=== PATIENT | female | born 1990 | race Caucasian/White ===

== ENCOUNTER 2023-04-23 19:41 | Emergency (ER) | payer BC, OTHER, SELFPAY ==
[2023-04-23 19:42] VITALS: BP 124/88
[2023-04-23 19:55] VITALS: BMI 67.4
[2023-04-23 20:12] LABS: % Basophils 0.6 % (0-2); % Eosinophils 2.2 % (0-6); % Immature Granulocytes 0.6 % (0-0.5); % Lymphocytes 24.2 % (20.5-51.1); % Monocytes 6.6 % (1.7-9.3); % Neutrophils 65.8 % (42.2-75.2); Absolute Basophils 0.1 10^3/uL (0-0.2); Absolute Eosinophils 0.3 10^3/uL (0-0.7); Absolute Immature Granulocytes 0.1 10^3/uL (0-0.05); Absolute Lymphocytes 3.2 10^3/uL (1.2-3.4); Absolute Monocytes 0.9 10^3/uL (0.1-0.6); Absolute Neutrophils 8.8 10^3/uL (1.4-6.5); Hematocrit 35.6 % (37.0-47.0); Hemoglobin 11.4 g/dL (12.0-16.0); Mean Corpuscular Hgb 23.8 pg (27.0-31.0); Mean Corpuscular Volume 74.5 fL (81.0-99.0); Mean Platelet Volume 8.9 fL (7.4-10.4); Nucleated Red Blood Cells % 0 %; Platelet Count 466 10^3/uL (130-400); Red Blood Cell Count 4.78 10^6/uL (4.20-5.40); Red Cell Dist. Width 18.7 % (11.5-14.5); White Blood Cell Count 13.4 10^3/uL (4.8-10.8)
[2023-04-23 20:21] LABS: Amphetamines Negative (Negative); Barbiturates Negative (Negative); Benzodiazepines Negative (Negative); Buprenorphine Negative (Negative); Cocaine Negative (Negative); Marijuana Negative (Negative); Methadone Negative (Negative); Methamphetamines Negative (Negative); Opiates Negative (Negative); Phencyclidine Negative (Negative); Tricyclic Antidepressants Negative (Negative)
[2023-04-23 20:30] LABS: Blood Urea Nitrogen 13 mg/dl (7-17); Calcium 9.4 mg/dl (8.4-10.2); Carbon Dioxide 27 mmol/L (22-30); Estimated Creatinine Clearance > 125 ml/min; Glucose 103 mg/dl (70-99); eGFR > 60.00
[2023-04-23 20:31] LABS: Alcohol None Detected
[2023-04-23 20:40] LABS: Chloride 100 mmol/L (98-107); Potassium 4.1 mmol/L (3.5-5.1); Sodium 136 mmol/L (135-145)
--- NOTE | 2023-04-23 21:02 | ED.GENMED ---
History of Present Illness
General
Chief Complaint: Crisis Evaluation
Source: patient
Time Seen by Provider: 04/23/23 20:55
Travel History
Have you had any contact with someone who has COVID-19?: No
Do you have any symptoms of coronavirus? Fever > 100 degrees, chills, cough, shortness of breath, sore throat, loss of taste or smell, muscle aches, or headache?: No
History of Present Illness
History of Present Illness:
Patient brought to the emergency room for crisis evaluation for evaluation of injuries to her right forearm. Patient states she is cutting her cell because she needs to have enough cuts to reach her magic number. The magic number is 366. Patient
is not suicidal but has a compulsion to cut for this reason. Patient denies doing anything else to hurt herself. She does not have access to her medications as she resides at a facility that handles her medications.
Past History
Past History
ED Past Medical History: Psychiatric (Obsessive compulsive disorder, borderline personality disorder, bipolar disorder, self-mutilation) and Other (Self-injurious behavior)
ED Past Surgical History: Cholecystectomy (February 2014)
Social History
Tobacco: Non-smoker
Alcohol: None
Personal: Single
Living: other ([facility])
Family History
Family History: Other (Noncontributory)
Phy Exam
Physical Exam
Physical Exam:
General: Awake, Alert, Oriented X3. Childlike demeanor, high BMI
Vitals: unremarkable
Head: Atraumatic
Eyes: Pupils equal, EOMI
Throat: Airway intact, no exudates
Neck: Trachea midline
Lungs: Clear and equal b/l
Heart: Regular rate, no murmurs
Neuro: Nonfocal
Skin: Warm, dry, no rash
Extremities: pulses equal b/l, no edema. Right forearm has multiple superficial abrasions and superficial lacerations and varying states of healing. None require suturing.
Course
Orders/Labs/Results
Orders:
Orders
04/23/23 20:05
Alcohol Urgent
Basic Metabolic Panel Urgent
Complete Blood Count/With Diff Urgent
Urine Drug Abuse Screen Urgent
Date Specimen was Collected: 04/23/23
Time Specimen was Collected: 19:57
Abnormal Lab Results
04/23/23
20:05
WBC 13.4 H 10^3/uL
(4.8-10.8)
Hgb 11.4 L g/dL
(12.0-16.0)
Hct 35.6 L %
(37.0-47.0)
MCV 74.5 L fL
(81.0-99.0)
MCH 23.8 L pg
(27.0-31.0)
MCHC 32.0 L g/dL
(33.0-37.0)
RDW 18.7 H %
(11.5-14.5)
Plt Count 466 H 10^3/uL
(130-400)
Abs Immat Gran (auto) 0.1 H 10^3/uL
(0-0.05)
Absolute Neuts (auto) 8.8 H 10^3/uL
(1.4-6.5)
Absolute Monos (auto) 0.9 H 10^3/uL
(0.1-0.6)
Immature Gran % 0.6 H %
(0-0.5)
Glucose 103 H mg/dl
(70-99)
04/23/23 20:05
04/23/23 20:05
Vital Signs
Initial and Last Documented VS:
Initial Vital Signs
Temp Pulse Resp BP Pulse Ox
99.0 F 106 17 124/88 95
04/23/23 19:42 04/23/23 19:42 04/23/23 19:42 04/23/23 19:42 04/23/23 19:42
Last Documented Vital Signs
Temp Pulse Resp BP Pulse Ox
99.0 F 106 17 124/88 95
04/23/23 19:42 04/23/23 19:42 04/23/23 19:42 04/23/23 19:42 04/23/23 19:42
MDM/Problems Addressed
Differential Diagnosis Includes:
Self injures behavior
MDM/Problems Addressed:
Patient presents with multiple superficial abrasions and lacerations. Suturing is not indicated given the vast majority are not very deep and she has been doing this for over a week so it is unclear how low many of them are. Patient would likely
pull the sutures out anyway. We will apply some Neosporin and dressed the wounds. Patient cleared for psychiatric treatment.
*Critical Care Note
Total Time (30-74mins, 75-104mins- exclusive of procedures): Not Applicable
ED Attending Note
-
Portions of this chart may have been created with voice recognition software.� Occasional wrong word or��sound alike� substitutions may have occurred due to the inherent limitations of voice recognition software.
Discharge Plan
Departure
Patient Disposition: [facility]
Date of Disposition: 04/23/23
Time of Disposition: 21:06
Condition: Fair
Discharge Problem:
Self-inflicted injury, Abrasion of multiple sites of right upper arm
Prescriptions:
No Action
metformin 500 mg tablet
500 mg PO BID
venlafaxine 75 mg capsule,extended release 24hr
75 mg PO DAILY
Rx Instructions:
taken w/ 150mg = 225mg
atorvastatin 10 mg tablet
10 mg PO QPM
clonazepam 1 mg tablet
1 mg PO BID@1600,2200
Patient Comments:
03/13/2023: last filled 03/07/23, 60 tabs for 30 days from [place]
venlafaxine 150 mg capsule,extended release 24hr
150 mg PO DAILY
Rx Instructions:
taken w/ 75mg = 225mg
hydroxyzine HCl 50 mg tablet
50 mg PO BID
amlodipine 10 mg tablet
10 mg PO DAILY
levothyroxine 50 mcg tablet
50 mcg PO DAILY
clonazepam 2 mg tablet
2 mg PO DAILY
Patient Comments:
03/13/2023: last filled 02/26/23, 30 tabs for 30 days
hydrochlorothiazide 12.5 mg capsule
12.5 mg PO DAILY
omeprazole 20 mg capsule,delayed release(DR/EC)
40 mg PO DAILY
montelukast 10 mg tablet
10 mg PO DAILY
gabapentin 100 mg capsule
100 mg PO DAILY
Mucus DM 30-600 mg tablet extended release 12 hr
1 tab PO BID PRN (Reason: congestion)
risperidone 1 mg tablet
1 mg PO DAILY
cholecalciferol (vitamin D3) 50 mcg (2,000 unit) capsule
50 mcg PO DAILY
Austedo 6 mg tablet
6 mg PO BID
risperidone 1 mg tablet
1.5 mg PO HS
budesonide-formoterol [Symbicort] 80-4.5 mcg/actuation Hfa Aerosol Inhaler
2 puff inhalation R BID Qty: 10.2 0RF
Rx Instructions:
1 inhalation bid
azithromycin 250 mg Tablet
250 mg PO DAILY Qty: 2 0RF
Rx Instructions:
take 1 tab on 03/19 and one on 03/20 , then stop
prednisone 10 mg tablet
10 mg PO DIRECTED Qty: 9 0RF
Rx Instructions:
3 tabs on 03/19, the 2 tabs on 03/20 and 03/21, then 1 tab on 03/22 and 03/23, then stop
albuterol sulfate [ProAir HFA] 90 mcg/actuation HFA aerosol inhaler
2 puff inhalation Q6H PRN (Reason: shortness of breath or wheezing) Qty: 6.7 0RF
Interventions
Interventions:
*Risk Screen - Suicide Last Done: 04/23/23 19:48
*General Assessment Last Done: 04/23/23 19:48
*Neglect/Abuse Screening Last Done: 04/23/23 19:48
*ED COVID-19 Vaccine History Last Done: 04/23/23 19:48
*Nursing Disposition Last Done: 04/23/23 21:27
ED-Psychological Assessment Last Done: 04/23/23 19:54
Discharge Date and Time
Discharge Date/Time: 04/23/23 21:28
== END 2023-04-23 21:28 ==
LOC: EMR 19:41
PROVIDERS: Emergency Medicine; EMERGENCY PHYSICIAN Emergency Medicine
DX: S40.811A Abrasion of right upper arm, initial encounter (principal); X78.9XXA Intentional self-harm by unspecified sharp object, initial encounter; Z91.52 Personal history of nonsuicidal self-harm
CPT/HCPCS: 99283; 80048; 80306; 82077; 85025

== ENCOUNTER 2023-11-16 20:31 | Emergency (ER) | payer BC, OTHER, SELFPAY ==
[2023-11-16 20:38] VITALS: BP 140/72
[2023-11-16 20:45] VITALS: BMI 64.2
--- NOTE | 2023-11-16 22:37 | ED.GENMED ---
Addendum entered and electronically signed by Irma Dumont MD 12/03/23 11:23:
(Late entry 11:22 am 12/03/23) Wounds X4 repaired with glue after irrigation. Wounds measured approx 5 cm, 5 cm, 6 cm and 6 cm.
Original Note:
History of Present Illness
General
Chief Complaint: Self Inflicted Injury
Source: patient
Time Seen by Provider: 11/16/23 21:40
History of Present Illness
History of Present Illness:
33 yr old female at [facility], was able to sneak razor into her room, and cut her L forearm area multiple times. Staff noted and broguht pt here. Pt denies si/hi, states she got the 'twisites'/anxious and did this in an impulsive manner. No other
injuries.
Past History
Past History
ED Past Medical History: Psychiatric (Obsessive compulsive disorder, borderline personality disorder, bipolar disorder, self-mutilation) and Other (Self-injurious behavior)
ED Past Surgical History: Cholecystectomy (February 2014)
Social History
Tobacco: Non-smoker
Alcohol: None
Personal: Single
Living: other ([facility])
Family History
Family History: Other (Noncontributory)
Phy Exam
Physical Exam
Physical Exam:
AAo times three, in nad
pupils equal and round
mmm, o/p clear
neck supple
hrt rrr
lung cta
abd soft, nt, nd
extrem no c/c/e
psych cooperative, pleasant, denies si/hi
skin multiple mostly superficial linear abrasions L forearm, numbering up to 15...4 of which exnted just to level of soft tissue, no active bleed
Course
Orders/Labs/Results
Orders:
Orders
11/16/23 22:45
Clonazepam [Klonopin] 2 mg PO NOW STA
Gabapentin [Neurontin] 300 mg PO NOW STA
METFORMIN HCl [Glucophage] 500 mg PO NOW STA
Montelukast Sodium [Singulair] 10 mg PO NOW STA
11/16/23 22:57
Quetiapine Fumarate [Seroquel] 200 mg PO NOW STA
Varenicline [Chantix] 1 mg PO NOW STA
11/16/23 23:38
Quetiapine Fumarate [Seroquel] 300 mg PO NOW STA
Vital Signs
Initial and Last Documented VS:
Initial Vital Signs
Temp Pulse Resp BP Pulse Ox
99.2 F 87 18 140/72 97
11/16/23 20:38 11/16/23 20:38 11/16/23 20:38 11/16/23 20:38 11/16/23 20:38
Last Documented Vital Signs
Temp Pulse Resp BP Pulse Ox
99.2 F 87 18 140/72 97
11/16/23 20:38 11/16/23 20:38 11/16/23 20:38 11/16/23 20:38 11/16/23 20:38
Procedures
Laceration Closure
Arm:
Status of Wound: clean
Description of Wound Edges: sharp
Preparation: cleaned with saline
Revision/Debridement: routine- no revision
Wound exploration: explored to base- no FB
Type of Closure: Dermabond-skin glue
*Critical Care Note
Total Time (30-74mins, 75-104mins- exclusive of procedures): Not Applicable
Update Note
Update Note:
I Mr. Brock patient presents to the Emergency Department with forearm laceration
Number and Complexity of Problems Addressed at the Encounter
� Chronic conditions affecting care:
� Acute Exacerbation and/or Progression of Chronic Illness:
� Differential Diagnosis includes: but not limited to laceration, abrasions, other injury
Amount and/or Complexity of Data to be Reviewed and Analyzed
� I performed an independent evaluation of and my interpretation is:
EKG:
CT:
Xrays:
Laboratory Studies:
Other:
� Review of other/old records reveals:
� Clinical information was obtained by an independent historian: worker who is bedside
� Prescriptions/Medications Considered but not given:
� Further testing considered but not performed:
Risk of Complications and/or Morbidity or Mortality of Patient Management
� Social determinants of health affecting care:
� Discussion with other providers (PCP, Hospitalists, Consultants, etc):
� Escalation of care including admission/observation vs risk of discharge considered: wounds cleaned and repaired by me. Worker from facility d/w recycling operations manager who recommends 302 for pt and will file one, crisis made aware. To me, pt
denies si/hi and is eager to return to facility, states she did this b/c of anxiety not wanting to . Dispo as per crisis, pt medically cleared.
ED Attending Note
-
Portions of this chart may have been created with voice recognition software.� Occasional wrong word or��sound alike� substitutions may have occurred due to the inherent limitations of voice recognition software.
Discharge Plan
Departure
Patient Disposition: [facility]
Date of Disposition: 11/16/23
Time of Disposition: 22:50
Discharge Problem:
Deliberate self-cutting
Instructions: Laceration Repair With Glue (DC), BLOOD PRESSURE
Prescriptions:
No Action
metformin 500 mg tablet
500 mg PO BID
venlafaxine 75 mg capsule,extended release 24hr
75 mg PO DAILY
Rx Instructions:
taken w/ 150mg = 225mg
atorvastatin 10 mg tablet
10 mg PO QPM
clonazepam 1 mg tablet
1 mg PO BID@1600,2200
Patient Comments:
03/13/2023: last filled 03/07/23, 60 tabs for 30 days from [place]
venlafaxine 150 mg capsule,extended release 24hr
150 mg PO DAILY
Rx Instructions:
taken w/ 75mg = 225mg
hydroxyzine HCl 50 mg tablet
50 mg PO BID
amlodipine 10 mg tablet
10 mg PO DAILY
levothyroxine 50 mcg tablet
50 mcg PO DAILY
clonazepam 2 mg tablet
2 mg PO DAILY
Patient Comments:
03/13/2023: last filled 02/26/23, 30 tabs for 30 days
hydrochlorothiazide 12.5 mg capsule
12.5 mg PO DAILY
omeprazole 20 mg capsule,delayed release(DR/EC)
40 mg PO DAILY
montelukast 10 mg tablet
10 mg PO DAILY
gabapentin 100 mg capsule
100 mg PO DAILY
Mucus DM 30-600 mg tablet extended release 12 hr
1 tab PO BID PRN (Reason: congestion)
risperidone 1 mg tablet
1 mg PO DAILY
cholecalciferol (vitamin D3) 50 mcg (2,000 unit) capsule
50 mcg PO DAILY
Austedo 6 mg tablet
6 mg PO BID
risperidone 1 mg tablet
1.5 mg PO HS
budesonide-formoterol [Symbicort] 80-4.5 mcg/actuation Hfa Aerosol Inhaler
2 puff inhalation R BID Qty: 10.2 0RF
Rx Instructions:
1 inhalation bid
azithromycin 250 mg Tablet
250 mg PO DAILY Qty: 2 0RF
Rx Instructions:
take 1 tab on 03/19 and one on 03/20 , then stop
prednisone 10 mg tablet
10 mg PO DIRECTED Qty: 9 0RF
Rx Instructions:
3 tabs on 03/19, the 2 tabs on 03/20 and 03/21, then 1 tab on 03/22 and 03/23, then stop
albuterol sulfate [ProAir HFA] 90 mcg/actuation HFA aerosol inhaler
2 puff inhalation Q6H PRN (Reason: shortness of breath or wheezing) Qty: 6.7 0RF
Referrals:
Alejandra Deal DO [Family Provider] -
Activity Restrictions/Additional Instructions:
YOU HAD YOUR WOUNDS CLEANED, AND SOME WERE REPAIRED WITH GLUE. DO NOT APPLY ANTIBIOTIC OINTMENT OR ANY OIL BASED CREAMS/LOTIONS. IF YOU DEVELOP REDNESS/WARMTH/SWELLING/DRAINAGE/BLEEDING/FEVER OR OTHER WORISOME SIGNS, GO TO THE ER IMMEDIATELY!
Interventions
Interventions:
*Risk Screen - Suicide Last Done: 11/16/23 20:38
*General Assessment Last Done: 11/16/23 20:38
*Neglect/Abuse Screening Last Done: 11/16/23 20:38
ED- Fall Risk Assessment Last Done: 11/16/23 23:00
*ED COVID-19 Vaccine History Last Done: 11/17/23 03:23
*Nursing Disposition Last Done: 11/17/23 03:23
ED-Suicide Risk Assessment Last Done: 11/16/23 20:50
ED-Skin Assessment Last Done: 11/16/23 20:50
Discharge Date and Time
Discharge Date/Time: 11/17/23 03:25
Print Language: PERSIAN
--- NOTE | 2023-11-16 23:05 | EDRN ---
Report received, introduced myself to patient, she is aware we are waiting for her meds to come up from pharmacy, asking for socks as well, will get her that also.
[2023-11-16] MEDS: GLUCOPHAGE 500 MG PO (23:20)
[2023-11-16] MEDS: KLONOPIN 2 MG PO (23:20)
[2023-11-16] MEDS: NEURONTIN 300 MG PO (23:21)
[2023-11-16] MEDS: SINGULAIR 10 MG PO (23:21)
[2023-11-16] MEDS: CHANTIX 1 MG PO (23:21)
[2023-11-16] MEDS: SEROQUEL 200 MG PO (23:21)
[2023-11-16] MEDS: SEROQUEL 300 MG PO (23:56)
--- NOTE | 2023-11-17 02:00 | EDRN ---
Patient sleeping and resting comfortably at this time.
== END 2023-11-17 03:25 ==
LOC: EMR 20:31
PROVIDERS: EMERGENCY PHYSICIAN Emergency Medicine; FAMILY PHYSICIAN Family Medicine
DX: S51.812A Laceration without foreign body of left forearm, initial encounter (principal); X99.8XXA Assault by other sharp object, initial encounter
CPT/HCPCS: 99284; 12006

== ENCOUNTER 2024-01-15 21:13 | Emergency (ER) | payer BC, OTHER, SELFPAY ==
[2024-01-15 21:13] VITALS: BP 124/63
[2024-01-15 21:15] VITALS: BP 134/85
[2024-01-15 22:55] LABS: % Basophils 0.7 % (0-2); % Eosinophils 2.7 % (0-6); % Immature Granulocytes 0.5 % (0-0.5); % Lymphocytes 22.6 % (20.5-51.1); % Neutrophils 67.5 % (42.2-75.2); Absolute Basophils 0.1 10^3/uL (0-0.2); Absolute Eosinophils 0.4 10^3/uL (0-0.7); Absolute Immature Granulocytes 0.1 10^3/uL (0-0.05); Absolute Monocytes 0.8 10^3/uL (0.1-0.6); Absolute Neutrophils 8.8 10^3/uL (1.4-6.5); Hematocrit 37.1 % (37.0-47.0); Mean Corp Hgb Conc. 32.3 g/dL (33.0-37.0); Mean Corpuscular Volume 83.4 fL (81.0-99.0); Nucleated Red Blood Cells % 0 %; Platelet Count 411 10^3/uL (130-400); Red Blood Cell Count 4.45 10^6/uL (4.20-5.40); Red Cell Dist. Width 16.2 % (11.5-14.5); White Blood Cell Count 13.1 10^3/uL (4.8-10.8)
[2024-01-15 23:29] LABS: Blood Urea Nitrogen 14 mg/dl (7-17); Calcium 9.3 mg/dl (8.4-10.2); Carbon Dioxide 25 mmol/L (22-30); Chloride 100 mmol/L (98-107); Glucose 97 mg/dl (70-99); Sodium 138 mmol/L (135-145); eGFR > 60.00
[2024-01-16 00:30] LABS: Amphetamines Negative (Negative); Barbiturates Negative (Negative); Benzodiazepines Negative (Negative); Buprenorphine Negative (Negative); Cocaine Negative (Negative); Marijuana Negative (Negative); Methadone Negative (Negative); Methamphetamines Negative (Negative); Opiates Negative (Negative); Phencyclidine Negative (Negative); Tricyclic Antidepressants Positive (Negative)
--- NOTE | 2024-01-16 02:34 | ED.GENMED ---
History of Present Illness
General
Chief Complaint: Suicidal Ideation
Source: patient and records
Exam Limitations: none
Time Seen by Provider: 01/15/24 21:19
Nursing documentation reviewed up to this point in time: agreed with
History of Present Illness
History of Present Illness:
Patient is a 33-year-old female with a history of self-inflicted lacerations to her forearms who presents again tonight. Patient states she will keep going until she Committed suicide. Patient is suicidal but without a plan. Patient denies any
numbness or paresthesias.
Past History
Past History
ED Past Medical History: Psychiatric (Obsessive compulsive disorder, borderline personality disorder, bipolar disorder, self-mutilation) and Other (Self-injurious behavior)
ED Past Surgical History: Cholecystectomy (February 2014)
Social History
Tobacco: Non-smoker
Alcohol: None
Personal: Single
Living: other ([facility])
Family History
Family History: Other (Noncontributory)
Review of Systems
Review of Systems
All Other Systems: Not applicable
Phy Exam
Physical Exam
Physical Exam:
Physical Exam
General: No apparent distress, alert and appropriate, morbidly obese, well hydrated
HENT: Normocephalic, supple with no lymphadenopathy, no thyromegaly
Eyes: Clear sclera, conjuctiva without injection
Lungs: No respiratory distress, no stridor
Neuro: Alert and oriented x 3, CN II - XII intact, no motor focality, no cerebellar dysfunction
Skin: Bilateral forearms with superficial lacerations. Neurovascular and tendons intact
Psychiatric: well kept. interactive and cooperative but with self-harm ideation
Extremities: No edema, cyanosis
Course
Orders/Labs/Results
Orders:
Orders
01/15/24 21:17
1:1 Observation - Suicide/ Violent Behavior As Directed
01/15/24 21:19
Crisis Consult Urgent
Reason for Consult: SI
01/15/24 22:16
Urine Drug Abuse Screen Urgent
Date Specimen was Collected: 01/15/24
Time Specimen was Collected: 22:37
01/15/24 22:31
Basic Metabolic Panel Urgent
01/15/24 22:49
Complete Blood Count/With Diff Urgent
Abnormal Lab Results
01/15/24 01/16/24
22:49 00:08
WBC 13.1 H 10^3/uL
(4.8-10.8)
MCHC 32.3 L g/dL
(33.0-37.0)
RDW 16.2 H %
(11.5-14.5)
Plt Count 411 H 10^3/uL
(130-400)
Abs Immat Gran (auto) 0.1 H 10^3/uL
(0-0.05)
Absolute Neuts (auto) 8.8 H 10^3/uL
(1.4-6.5)
Absolute Monos (auto) 0.8 H 10^3/uL
(0.1-0.6)
Ur Tricyclics Screen Positive H
(Negative)
01/15/24 22:49
01/15/24 22:31
Vital Signs
Initial and Last Documented VS:
Initial Vital Signs
Temp Pulse Resp BP Pulse Ox
98.5 F 102 18 134/85 94
01/15/24 21:15 01/15/24 21:15 01/15/24 21:15 01/15/24 21:15 01/15/24 21:15
Last Documented Vital Signs
Temp Pulse Resp BP Pulse Ox
98.5 F 102 18 134/85 94
01/15/24 21:15 01/15/24 21:15 01/15/24 21:15 01/15/24 21:15 01/15/24 21:15
*Radiology
Radiology exam reviewed: other (na)
*Pulse Oximetry
Patient hypoxic: no
*EKG
Interpreted by ED Provider?: NA
*Stable Helper Interpretation
Rate: Stable Helper- N/A
*Critical Care Note
Total Time (30-74mins, 75-104mins- exclusive of procedures): Not Applicable
Update Note
Update Note:
Patient has been committed. Patient is medically clear for hospitalization
ED Attending Note
-
Portions of this chart may have been created with voice recognition software.� Occasional wrong word or��sound alike� substitutions may have occurred due to the inherent limitations of voice recognition software.
Discharge Plan
Departure
Patient Disposition: Psych Facility
Date of Disposition: 01/16/24
Time of Disposition: 02:40
Patient with high blood pressure during this ER visit?: No
Condition: Fair
Discharge Problem:
Intentional self-harm, Suicidal ideation
Prescriptions:
No Action
metformin 500 mg tablet
500 mg PO BID
venlafaxine 75 mg capsule,extended release 24hr
75 mg PO DAILY
Rx Instructions:
taken w/ 150mg = 225mg
atorvastatin 10 mg tablet
10 mg PO QPM
clonazepam 1 mg tablet
1 mg PO BID@1600,2200
Patient Comments:
03/13/2023: last filled 03/07/23, 60 tabs for 30 days from [place]
venlafaxine 150 mg capsule,extended release 24hr
150 mg PO DAILY
Rx Instructions:
taken w/ 75mg = 225mg
hydroxyzine HCl 50 mg tablet
50 mg PO BID
amlodipine 10 mg tablet
10 mg PO DAILY
levothyroxine 50 mcg tablet
50 mcg PO DAILY
clonazepam 2 mg tablet
2 mg PO DAILY
Patient Comments:
03/13/2023: last filled 02/26/23, 30 tabs for 30 days
hydrochlorothiazide 12.5 mg capsule
12.5 mg PO DAILY
omeprazole 20 mg capsule,delayed release(DR/EC)
40 mg PO DAILY
montelukast 10 mg tablet
10 mg PO DAILY
gabapentin 100 mg capsule
100 mg PO DAILY
Mucus DM 30-600 mg tablet extended release 12 hr
1 tab PO BID PRN (Reason: congestion)
risperidone 1 mg tablet
1 mg PO DAILY
cholecalciferol (vitamin D3) 50 mcg (2,000 unit) capsule
50 mcg PO DAILY
Austedo 6 mg tablet
6 mg PO BID
risperidone 1 mg tablet
1.5 mg PO HS
budesonide-formoterol [Symbicort] 80-4.5 mcg/actuation Hfa Aerosol Inhaler
2 puff inhalation R BID Qty: 10.2 0RF
Rx Instructions:
1 inhalation bid
azithromycin 250 mg Tablet
250 mg PO DAILY Qty: 2 0RF
Rx Instructions:
take 1 tab on 03/19 and one on 03/20 , then stop
prednisone 10 mg tablet
10 mg PO DIRECTED Qty: 9 0RF
Rx Instructions:
3 tabs on 03/19, the 2 tabs on 03/20 and 03/21, then 1 tab on 03/22 and 03/23, then stop
albuterol sulfate [ProAir HFA] 90 mcg/actuation HFA aerosol inhaler
2 puff inhalation Q6H PRN (Reason: shortness of breath or wheezing) Qty: 6.7 0RF
Referrals:
UNKNOWN - PT NOT,INTERVIEWE [Family Provider] -
Interventions
Interventions:
*Risk Screen - Suicide Last Done: 01/15/24 21:15
*General Assessment Last Done: 01/15/24 21:15
*Neglect/Abuse Screening Last Done: 01/15/24 21:15
ED-Psychological Assessment Last Done: 01/15/24 21:53
Discharge Date and Time
Print Language: [id number]
== END 2024-01-16 10:32 ==
LOC: EMR 21:13
PROVIDERS: EMERGENCY PHYSICIAN Emergency Medicine
DX: S51.812A Laceration without foreign body of left forearm, initial encounter (principal); S51.811A Laceration without foreign body of right forearm, initial encounter; X78.8XXA Intentional self-harm by other sharp object, initial encounter; R45.851 Suicidal ideations
CPT/HCPCS: 99285; 80048; 80306; 85025